=== PATIENT | male | born 1980 ===

== ENCOUNTER → 2021-03-31 | Outpatient (REF) ==
--- NOTE | 2021-03-31 13:22 | REPPI ---
INDICATION: DISABILITY DIAGNOSIS DETERMINATION COMPARISON: None. TECHNIQUE: AP, lateral, coned-down views of the lumbar spine. FINDINGS: No acute fracture/compression injury or subluxation. Minimal age-related changes. Disc spaces appear relatively maintained. IMPRESSION: 1. No acute fracture / compression injury or subluxation. 2. Essentially age-appropriate examination by radiographic evaluation. <Electronically signed by Cody Sorto > 03/31/21 [id number]
== END ==
LOC: M PLAIMG 12:41
PROVIDERS: ATTEND Internal Medicine
DX: M54.5 Low back pain (principal)